=== PATIENT | female | born 1990 | race African-American/Black ===

== ENCOUNTER 2017-03-31 07:25 | Emergency (ER) | payer SELFPAY ==
[~2017-03-31] VITALS: Ht 165.1 cm; Wt 75.0 kg
[2017-03-31 07:52] VITALS: BP 127/81
[2017-03-31] MEDS ORDERED: KETOROLAC 30MG/ML VIAL IM ONE (08:00)
[2017-03-31] MEDS ORDERED: IBUPROFEN 600MG TABLET PO ONE (09:15)
== END 2017-03-31 09:25 | disposition home or self-care (01) ==
LOC: ER 07:35
DX: M79.671 Pain in right foot (principal); V43.52XA Car driver injured in collision with other type car in traffic accident, initial encounter
CPT/HCPCS: 73630; 81025; 96372; 99284; J1885; J7030; Z7610

== ENCOUNTER 2018-12-17 11:33 | Emergency (ER) | payer MEDICAID, OTHER ==
[~2018-12-17] VITALS: Ht 160 cm; Wt 60.0 kg
[2018-12-17] MEDS ORDERED: MAGNESIUM/ALUMINUM HYDROXIDE/SIMETHICONE 30ML UDC PO STA (13:10)
[2018-12-17 13:36] LABS: CLARITY URINE CLEAR (CLEAR); COLOR URINE YELLOW (YELLOW); KETONES URINE NEGATIVE (NEGATIVE); LEUKOCYTE ESTERASE URINE NEGATIVE (NEGATIVE); NITRITE URINE NEGATIVE (NEGATIVE); OCCULT BLOOD URINE NEGATIVE (NEGATIVE); PROTEIN URINE NEGATIVE (NEGATIVE); SPECIFIC GRAVITY URINE 1.004 (1.005-1.030)
[2018-12-17 13:57] LABS: *AMPHETAMINES SCREEN URINE NEGATIVE (NEGATIVE); *BARBITURATES SCREEN URINE NEGATIVE (NEGATIVE); *BENZODIAZEPINES SCREEN URINE NEGATIVE (NEGATIVE); *COCAINE SCREEN URINE NEGATIVE (NEGATIVE); METHADONE URINE SCREEN NEGATIVE (NEGATIVE); OPIATES URINE SCREEN NEGATIVE (NEGATIVE)
[2018-12-17 13:58] LABS: PHENCYCLIDINE URINE SCREEN NEGATIVE (NEGATIVE)
[2018-12-17 14:15] LABS: CANNABINOID URINE SCREEN PRESUMTIVE POSITIVE (NEGATIVE)
[2018-12-17 14:22] LABS: BASOPHILS % 0.4 % (0.0-2.0); EOSINOPHILS % 0.3 % (0.0-5.0); HEMATOCRIT. 38.2 % (36.0-48.0); HEMOGLOBIN. 12.4 g/dL (12.0-16.0); LYMPHOCYTES % 19.5 % (20.0-50.0); MEAN CORPUSCULAR HEMOGLOBIN 27.7 pg (28.0-32.0); MEAN CORPUSCULAR VOLUME 85.6 fL (81.0-99.0); MEAN PLATELET VOLUME 7.8 fl (7.4-10.4); MONOCYTES % 6.7 % (2.0-8.0); NEUTROPHILS % 73.1 % (40.0-76.0); PLATELET 269 x1000/uL (130-400); RED BLOOD CELL COUNT 4.47 mill/uL (4.2-5.4); RED CELL DISTRIBUTION WIDTH 14.5 % (11.6-14.6)
[2018-12-17 14:27] LABS: CHLORIDE 112 mEq/L (98-107)
[2018-12-17 14:31] LABS: ETHANOL BLOOD < 10 mg/dL
[2018-12-17 15:23] VITALS: BP 144/87
== END 2018-12-17 16:59 | disposition home or self-care (01) ==
LOC: ER 11:33
DX: R10.13 Epigastric pain (principal)
CPT/HCPCS: 36415; 74018; 80305; 80307; 80320; 80329; 81025; 99284; G0480